=== PATIENT | female | born 1940 | race Two or more races ===

== ENCOUNTER 2022-10-20 09:46 | Emergency (ER) | payer MEDICAID ==
[~2022-10-20] VITALS: Ht 157.5 cm; Wt 95.5 kg
[2022-10-20] MEDS ORDERED: IBUPROFEN 600 MG TABLET PO ONE (10:30)
[2022-10-20 12:55] LABS: BASOPHILS % (AUTO) 0.8 % (0.0-2.0); EOSINOPHILS % (AUTO) 1.4 % (1.0-6.0); HEMATOCRIT 34.6 % (36-46); HEMOGLOBIN 11.2 g/dL (12.0-16.0); LYMPHOCYTES # (AUTO) 1.7 K/uL (1.0-4.8); LYMPHOCYTES % (AUTO) 23.4 % (22.0-44.0); MEAN CORPUSCULAR HEMOGLOBIN 28.1 pg (26.0-34.0); MEAN CORPUSCULAR HGB CONC 32.5 G/dL (31.0-37.0); MEAN CORPUSCULAR VOLUME 86 fL (80-100); MONOCYTES # (AUTO) 0.4 K/uL (0.1-1.0); MONOCYTES % (AUTO) 6.2 % (2.0-9.0); NEUTROPHILS # (AUTO) 4.9 K/uL (1.8-7.7); NEUTROPHILS % (AUTO) 68.2 % (40.0-70.0); PLATELET COUNT (AUTO) 210 K/uL (150-450); RED CELL DISTRIBUTION WIDTH 14.6 % (11.5-14.5)
[2022-10-20 13:04] LABS: ANION GAP 8 mmol/L (8-16); CALCIUM, TOTAL 8.6 mg/dL (8.8-10.5); CARBON DIOXIDE 26 mmol/L (22-29); CHLORIDE 106 mmol/L (98-107); CREATININE 0.62 mg/dL (0.60-1.30); GLOMERULAR FILTR. RATE CALC > 60 mL/min (>60); GLUCOSE,RANDOM 93 mg/dL (70-110); POTASSIUM 3.5 mmol/L (3.5-5.1); SODIUM SERUM 140 mmol/L (136-145)
[2022-10-20 13:05] LABS: PROTHROMBIN TIME 10.9 SEC (9.4-11.6)
[2022-10-20 13:10] VITALS: BP 166/81
[2022-10-20 13:11] LABS: ALANINE AMINOTRANSFERASE 17 U/L (12-78); ALBUMIN 3.1 g/dL (3.4-5.0); ALKALINE PHOSPHATASE 68 U/L (46-116); ASPARTATE AMINOTRANSFERASE 16 U/L (15-37); BILIRUBIN,TOTAL 0.6 mg/dL (0.1-1.0); TOTAL PROTEIN, SERUM 6.2 g/dL (6.4-8.2)
[2022-10-20] MEDS ORDERED: APIXABAN 5 MG TABLET PO ONE (13:15)
[2022-10-20] MEDS ORDERED: APIX5TAB PO (13:20)
[2022-10-20 13:50] LABS: D-DIMER 2.53 mg/L FEU (0.00-0.50)
== END 2022-10-20 13:48 | disposition home or self-care (01) ==
LOC: EMS 09:46
DX: S82.001K Unspecified fracture of right patella, subsequent encounter for closed fracture with nonunion (principal); I82.411 Acute embolism and thrombosis of right femoral vein; Z90.49 Acquired absence of other specified parts of digestive tract; Z98.890 Other specified postprocedural states; X58.XXXD Exposure to other specified factors, subsequent encounter
CPT/HCPCS: 80053; 85025; 85379; 85610; 85730; 93971; 99284